=== PATIENT | female | born 1955 | race Caucasian/White ===

== ENCOUNTER 2018-07-29 15:09 | Emergency (ER) | payer OTHER ==
[2018-07-29] MEDS ORDERED: ALBUTEROL 2.5 MG/3 ML NEB SOL ONE (15:42)
[2018-07-29] MEDS ORDERED: predniSONE 20 MG TAB ONE (15:42)
[2018-07-29 15:53] LABS: Absolute Lymphocytes (CBC) 2.3 K/uL (0.7-4.9); Absolute Monocytes 0.7 K/uL (0.1-1.3); Absolute Neutrophil 7.2 K/uL (1.8-8.0); Basophils % 1.1 % (0-1.3); Eosinophils % 0.9 % (0-4.4); Hematocrit 43.8 % (36.0-45.0); MPV 10.3 fL (7.6-11.3); Monocytes % 6.6 % (3.3-12.3); RBC Red Blood Cell Count 5.27 M/uL (3.86-4.86)
--- NOTE | 2018-07-29 16:20 | RAD REPORT ---
EXAM DESCRIPTION: RAD - Chest Pa And Lat (2 Views) - 07/29/2018 4:04 pm CLINICAL HISTORY: Cough;SOB Chest pain. COMPARISON: Chest Pa And Lat (2 Views) dated 10/20/2015; CHEST SINGLE VIEW dated 06/29/2014; CHEST SI NGLE VIEW dated 06/28/2014; CHEST SINGLE VIEW dated 06/27/2014 FINDINGS: Reticular opacities are present bilaterally most likely representing atypical pneumonia. N o lobar consolidation The heart is normal in size. No displaced fractures. IMPRESSION: Reticular opacities in both lungs most compatible with atypical pneumonia.
[2018-07-29 16:22] LABS: ALT/SGPT 12 U/L (12-78); AST/SGOT 13 U/L (15-37); Alkaline Phosphatase 130 U/L (45-117); BUN Blood Urea Nitrogen 13 mg/dL (7-18); Bicarbonate 32 mmol/L (21-32); Bilirubin Direct < 0.1 mg/dL (0-0.2); Bilirubin Total 0.2 mg/dL (0.2-1.0); Potassium 4.3 mmol/L (3.5-5.1); Sodium Level 134 mmol/L (136-145)
[2018-07-29 16:23] LABS: Albumin 3.2 g/dL (3.4-5.0); Magnesium 1.8 mg/dL (1.8-2.4); NT PRO-BNP 55 pg/mL (<125); Protein, Total 7.6 g/dL (6.4-8.2); Troponin (Emerg Dept Use Only) < 0.02 ng/mL (0.0-0.045)
[2018-07-29 16:24] LABS: Glucose Level 554 mg/dL (74-106)
[2018-07-29 16:33] LABS: Protime INR 1.07
[2018-07-29] MEDS ORDERED: INSULIN -REGULAR HUMAN 50 UNIT/0.5 ML ML ONE (16:54)
[2018-07-29] MEDS ORDERED: CEFTRIAXONE/SWI 1gm 1 GM/10 ML SYR ONE (16:55)
[2018-07-29] MEDS ORDERED: NA CHLORIDE 0.9% 1,000 ML ONE (16:55)
[2018-07-29] MEDS ORDERED: AZITHROMYCIN 500 MG/250 ML BAG ONE (16:55)
--- NOTE | 2018-07-29 17:07 | EKG ---
Test Date: 2018-07-29 Test Time: 15:39:44 Cafeteria Cook: KEN MEASUREMENT RESULTS: Intervals: Rate: 77 MD: 128 QRSD: 78 QT: 402 QTc: 454 [place]: P: 61 MD: 128 QRS: 70 T: 84 INTERPRETIVE STATEMENTS: Sinus rhythm with fusion complexes Otherwise normal ECG No previous ECG available for comparison Electronically Signed On 07-29-18 17:06:42 [employer]SEM[employer] MACHINE ADJUSTER by Joaquim Brooks
--- NOTE | 2018-07-29 18:40 | ER ---
Nurse's Notes [facility] Name: Caren Singh Age: 62 yrs Sex: Female : 1955 Arrival Date: 07/29/2018 Time: 15:12 Bed 28 Private MD: Tiffany Meyers Diagnosis: Pneumonia, unspecified organism Presentation: 07/29 15:16 Presenting complaint: Patient states: i started feeling short of breath for at least a tw2 week, just gotten where i am not coughing the green junk up. Transition of care: patient was not received from another setting of care. Onset of symptoms was July 29, 2018. Risk Assessment: Do you want to hurt yourself or someone else? Patient reports no desire to harm self or others. Initial Sepsis Screen: Does the patient meet any 2 criteria? No. Patient's initial sepsis screen is negative. Does the patient have a suspected source of infection? No. Patient's initial sepsis screen is negative. Care prior to arrival: None. 15:16 Method Of Arrival: Ambulatory tw2 15:16 Acuity: ONI 3 tw2 Triage Assessment: 15:17 General: Appears in no apparent distress. Behavior is calm, cooperative, appropriate tw2 for age. Pain: Complains of pain in chest, with deep breathing. Respiratory: Reports shortness of breath cough that is non-productive, Onset: The symptoms/episode began/occurred a week now, the patient has mild shortness of breath. Historical: - Allergies: 15:19 No Known Drug Allergies; tw2 - Home Meds: 15:19 diabetes medication "gentomedia or something" [Active]; tw2 - PMHx: 15:19 Diabetes - NIDDM; Hypertension; tw2 - PSHx: 15:19 Appendectomy; Cholecystectomy; Hysterectomy; ear surgery; tw2 - Immunization history:: Adult Immunizations. - Social history:: Smoking status: Patient uses tobacco products, "i havent smoked in a month". - Ebola Screening: : Patient denies travel to an Ebola-affected area in the 21 days before illness onset. Screenin:14 Abuse screen: Denies threats or abuse. Denies injuries from another. Nutritional mg2 screening: No deficits noted. Tuberculosis screening: No symptoms or risk factors identified. Fall Risk IV access (20 points). Assessment: 16:11 General: Appears in no apparent distress. comfortable, Behavior is calm, cooperative. mg2 Pain: Complains of pain in chest Pain does not radiate. Pain currently is 2 out of 10 on a pain scale. Quality of pain is described as aching, Pain began gradually, Is intermittent. Neuro: Level of Consciousness is awake, alert, obeys commands, Oriented to person, place, time, situation. Cardiovascular: Capillary refill < 3 seconds Patient's skin is warm and dry. Respiratory: Airway is patent Respiratory effort is even, unlabored, Respiratory pattern is regular, symmetrical. Respiratory: Reports shortness of breath cough that is non-productive, Breath sounds are clear bilaterally. in mediastinum, right upper lobe, left upper lobe, right middle lobe and left lower lobe. GI:. : No signs and/or symptoms were reported regarding the genitourinary system. EENT: No signs and/or symptoms were reported regarding the EENT system. Derm: Skin is intact, is healthy with good turgor, Skin is pink, warm \\T\\ dry. normal. Musculoskeletal: Circulation, motion, and sensation intact. Capillary refill < 3 seconds. 18:55 Cardiovascular: Rhythm is regular. mg2 18:55 Reassessment: Patient appears in no apparent distress at this time. patient improved. mg2 Vital Signs: 15:17 BP 158 / 77; Pulse 84; Resp 19; Temp 97.1(O); Pulse Ox 97% on R/A; Weight 58.97 kg (R); tw2 Height 5 ft. 5 in. (165.10 cm); Pain 7/10; 17:08 BP 132 / 87; Pulse 94; Resp 18; Pulse Ox 93% on R/A; Pain 0/10; mg2 18:44 BP 145 / 78; Pulse 85; Resp 18; Temp 98.2(O); Pulse Ox 100% on R/A; Pain 2/10; mg2 15:17 Body Mass Index 21.63 (58.97 kg, 165.10 cm) tw2 ED Course: 15:12 Patient arrived in ED. dl4 15:12 Ian Dias DO is Private Physician. dl4 15:12 Isacc Meyers DO is Private Physician. dl4 15:12 Tiffany Meyers MD is Private Physician. dl4 15:17 Triage completed. tw2 15:18 Arm band placed on. tw2 15:20 Trenton Ward, BERNA is PHCP. pm1 15:20 Radha Kingston MD is Attending Physician. pm1 15:30 Jax Alas, CHLOÉ is Primary Nurse. mg2 15:53 No provider procedures requiring assistance completed. Inserted saline lock: 20 gauge mg2 in left forearm, using aseptic technique. Blood collected. 15:54 EKG done, by foundry technician. reviewed by Trenton Ward NP. tc 16:05 Chest Pa And Lat (2 Views) XRAY In Process Unspecified. EDMS 16:14 Patient has correct armband on for positive identification. Door closed. Warm blanket mg2 given. 18:55 IV discontinued, intact, bleeding controlled, No redness/swelling at site. Pressure mg2 dressing applied. Administered Medications: 15:52 Drug: Albuterol 2.5 mg Route: Inhalation; mg2 18:54 Follow up: Response: No adverse reaction; Marked relief of symptoms mg2 15:52 Drug: predniSONE 60 mg Route: PO; mg2 18:54 Follow up: Response: No adverse reaction; Marked relief of symptoms mg2 17:00 Drug: Insulin Regular Human 10 units {Co-Signature: tl3 (Antonia Cummings RN).} Route: IVP; mg2 Site: left forearm; 18:53 Follow up: Response: No adverse reaction; Blood sugar is lowered mg2 17:07 Drug: Rocephin 1 grams Route: IV; Rate: calculated rate; Site: left forearm; mg2 18:54 Follow up: Response: No adverse reaction; IV Status: Completed infusion mg2 17:07 Drug: AZITHromycin 500 mg Route: IVPB; Infused Over: 1 hrs; Site: left forearm; mg2 18:54 Follow up: Response: No adverse reaction; IV Status: Completed infusion mg2 17:07 Drug: NS 0.9% 1000 ml Route: IV; Rate: 1000 ml; Site: left forearm; mg2 18:53 Follow up: Response: No adverse reaction; IV Status: Completed infusion mg2 Point of Care Testing: Blood Glucose: 18:44 Blood Glucose: 359 mg/dL; mg2 Ranges: Outcome: 18:40 Discharge ordered by . pm1 18:55 Discharged to home ambulatory. mg2 18:55 Condition: stable 18:55 Discharge instructions given to patient, Instructed on discharge instructions, follow up and referral plans. medication usage, Demonstrated understanding of instructions, follow-up care, medications, Prescriptions given X 5 19:03 Patient left the ED. mg2 Signatures: Dispatcher [employer] EDMS Ivanna Kumari, manager college EKG Trenton Blake, BERNA [employer] pm1 Luz Elena Retana, RN RN tw2 Jax Alas RN RN mg2 Naeem Fernández dl4 Antonia Cummings RN tl3
--- NOTE | 2018-07-29 18:40 | EDPHYS ---
Physician Documentation [facility] Name: Caren Singh Age: 62 yrs Sex: Female : 1955 Arrival Date: 07/29/2018 Time: 15:12 Bed 28 Private MD: Tiffany Meyers ED Physician Radha Kingston HPI: 07/29 16:00 This 62 yrs old Female presents to ER via Ambulatory with complaints of pm1 Breathing Difficulty. 16:00 The patient has shortness of breath at rest. Onset: The symptoms/episode began/occurred pm1 1 week(s) ago. Duration: The symptoms are continuous, and are steadily getting worse. The patient's shortness of breath is aggravated by light activity, is alleviated by nothing. Associated signs and symptoms: Pertinent positives: chest pain, productive cough, Chills, Pertinent negatives: fever, nausea, vomiting. The patient has experienced a previous episode, many years ago, pneumonia. The patient has not recently seen a physician. Historical: - Allergies: 15:19 No Known Drug Allergies; tw2 - Home Meds: 15:19 diabetes medication "gentomedia or something" [Active]; tw2 - PMHx: 15:19 Diabetes - NIDDM; Hypertension; tw2 - PSHx: 15:19 Appendectomy; Cholecystectomy; Hysterectomy; ear surgery; tw2 - Immunization history:: Adult Immunizations. - Social history:: Smoking status: Patient uses tobacco products, "i havent smoked in a month". - Ebola Screening: : Patient denies travel to an Ebola-affected area in the 21 days before illness onset. ROS: 16:00 Constitutional: Negative for fever, chills, and weight loss, Eyes: Negative for injury, pm1 pain, redness, and discharge, ENT: Negative for injury, pain, and discharge, Neck: Negative for injury, pain, and swelling, Cardiovascular: Negative for chest pain, palpitations, and edema. 16:00 Abdomen/GI: Negative for abdominal pain, nausea, vomiting, diarrhea, and constipation, Back: Negative for injury and pain, : Negative for injury, bleeding, discharge, and swelling, MS/Extremity: Negative for injury and deformity, Skin: Negative for injury, rash, and discoloration, Neuro: Negative for headache, weakness, numbness, tingling, and seizure. 16:00 Respiratory: Positive for cough, with yellow sputum, dyspnea on exertion, shortness of breath. Exam: 16:00 Constitutional: This is a well developed, well nourished patient who is awake, alert, pm1 and in no acute distress. Head/Face: Normocephalic, atraumatic. Eyes: Pupils equal round and reactive to light, extra-ocular motions intact. Lids and lashes normal. Conjunctiva and sclera are non-icteric and not injected. Cornea within normal limits. Periorbital areas with no swelling, redness, or edema. ENT: Nares patent. No nasal discharge, no septal abnormalities noted. Tympanic membranes are normal and external auditory canals are clear. Oropharynx with no redness, swelling, or masses, exudates, or evidence of obstruction, uvula midline. Mucous membranes moist. Neck: Trachea midline, no thyromegaly or masses palpated, and no cervical lymphadenopathy. Supple, full range of motion without nuchal rigidity, or vertebral point tenderness. No Meningismus. Chest/axilla: Normal chest wall appearance and motion. Nontender with no deformity. No lesions are appreciated. Cardiovascular: Regular rate and rhythm with a normal S1 and S2. No gallops, murmurs, or rubs. Normal PMI, no JVD. No pulse deficits. 16:00 Abdomen/GI: Soft, non-tender, with normal bowel sounds. No distension or tympany. No guarding or rebound. No evidence of tenderness throughout. Back: No spinal tenderness. No costovertebral tenderness. Full range of motion. Skin: Warm, dry with normal turgor. Normal color with no rashes, no lesions, and no evidence of cellulitis. MS/ Extremity: Pulses equal, no cyanosis. Neurovascular intact. Full, normal range of motion. 16:00 Respiratory: the patient does not display signs of respiratory distress, Respirations: normal, Breath sounds: rhonchi, that are mild, are heard diffusely. 16:00 Neuro: Orientation: is normal, Motor: is normal, moves all fours. Vital Signs: 15:17 BP 158 / 77; Pulse 84; Resp 19; Temp 97.1(O); Pulse Ox 97% on R/A; Weight 58.97 kg (R); tw2 Height 5 ft. 5 in. (165.10 cm); Pain 7/10; 17:08 BP 132 / 87; Pulse 94; Resp 18; Pulse Ox 93% on R/A; Pain 0/10; mg2 18:44 BP 145 / 78; Pulse 85; Resp 18; Temp 98.2(O); Pulse Ox 100% on R/A; Pain 2/10; mg2 15:17 Body Mass Index 21.63 (58.97 kg, 165.10 cm) tw2 MDM: 15:21 Patient medically screened. pm1 16:00 Data reviewed: vital signs. pm1 16:45 Data interpreted: Pulse oximetry: on room air is 97 %. Interpretation: normal. pm1 16:49 Counseling: I had a detailed discussion with the patient and/or guardian regarding: the pm1 historical points, exam findings, and any diagnostic results supporting the discharge/admit diagnosis, lab results, radiology results. 18:36 ED course: PSI PORT score = 64 points, Risk Class II. Discussed case with Dr Kingston. pm1 Will discharge patient home with antibiotics, steroids, and breathing treatment. Educated patient on return precautions for worsening condition or any concerns. 18:36 Counseling: I had a detailed discussion with the patient and/or guardian regarding: the pm1 need for further work-up and treatment in the hospital, to return to the emergency department if symptoms worsen or persist or if there are any questions or concerns that arise at home. 18:36 Special discussion: I discussed with the patient/guardian in detail that at this point pm1 there is no indication for admission to the hospital. It is understood, however, that if the symptoms persist or worsen the patient needs to return immediately for re-evaluation. 07/29 15: Order name: Basic Metabolic Panel; Complete Time: 16:28 pm07/29 15:29 Order name: CBC with Diff; Complete Time: 16:17 pm07/29 15:29 Order name: LFT's; Complete Time: 16:28 pm07/29 15:29 Order name: Magnesium; Complete Time: 16:28 pm07/29 15:29 Order name: NT PRO-BNP; Complete Time: 16:28 pm07/29 15:29 Order name: PT-INR; Complete Time: 16:38 pm07/29 15:29 Order name: Troponin (emerg Dept Use Only); Complete Time: 16:28 pm07/29 15:29 Order name: Chest Pa And Lat (2 Views) XRAY; Complete Time: 16:28 pm07/29 15:29 Order name: Flu; Complete Time: 16:17 pm07/29 16:29 Order name: Blood Culture Adult (2) pm1 07/29 15:29 Order name: EKG; Complete Time: 15:31 pm07/29 15:29 Order name: Cardiac monitoring; Complete Time: 15:52 pm07/29 15:29 Order name: EKG - Nurse/Tech; Complete Time: 15:52 pm07/29 15:29 Order name: IV Saline Lock; Complete Time: 15:52 pm07/29 15:29 Order name: Labs collected and sent; Complete Time: 15:52 pm07/29 15:29 Order name: O2 Per Protocol; Complete Time: 15:53 pm07/29 15:29 Order name: O2 Sat Monitoring; Complete Time: 15:53 pm1 Administered Medications: 15:52 Drug: Albuterol 2.5 mg Route: Inhalation; mg2 18:54 Follow up: Response: No adverse reaction; Marked relief of symptoms mg2 15:52 Drug: predniSONE 60 mg Route: PO; mg2 18:54 Follow up: Response: No adverse reaction; Marked relief of symptoms mg2 17:00 Drug: Insulin Regular Human 10 units {Co-Signature: tl3 (Antonia Cummings RN).} Route: IVP; mg2 Site: left forearm; 18:53 Follow up: Response: No adverse reaction; Blood sugar is lowered mg2 17:07 Drug: Rocephin 1 grams Route: IV; Rate: calculated rate; Site: left forearm; mg2 18:54 Follow up: Response: No adverse reaction; IV Status: Completed infusion mg2 17:07 Drug: AZITHromycin 500 mg Route: IVPB; Infused Over: 1 hrs; Site: left forearm; mg2 18:54 Follow up: Response: No adverse reaction; IV Status: Completed infusion mg2 17:07 Drug: NS 0.9% 1000 ml Route: IV; Rate: 1000 ml; Site: left forearm; mg2 18:53 Follow up: Response: No adverse reaction; IV Status: Completed infusion mg2 Point of Care Testing: Blood Glucose: 18:44 Blood Glucose: 359 mg/dL; mg2 Ranges: Critical Glucose Levels:Adult <50 mg/dl or >400 mg/dl <40 mg/dl or >180 mg/dl Disposition: 07/30 18:41 Co-signature as Attending Physician, Radha Kingston MD. ma2 Disposition: 07/29/18 18:40 Discharged to Home. Impression: Pneumonia, unspecified organism. - Condition is Stable. - Discharge Instructions: Community-Acquired Pneumonia, Adult. - Prescriptions for Zithromax Z- Francis 250 mg Oral Tablet - take 1 tablet by ORAL route as directed for 5 days Day 1 - take two (2) tablets one time. Day 2, 3, 4 , 5 take one (1) tablet once daily.; 6 tablet. Albuterol Sulfate 90 mcg/actuation - inhale 1-2 puff by INHALATION route every 4-6 hours; 1 Inhaler. Guaifenesin AC 10- 100 mg/5 mL Oral Liquid - take 10 milliliter by ORAL route every 4 hours As needed; 240 milliliter. Albuterol Sulfate 2.5 mg /3 mL (0.083 %) Inhalation Solution for Nebulization - inhale 1 unit by NEBULIZATION route every 8 hours As needed; 1 box. Medrol (Francis) 4 mg Oral Tablets, Dose Pack - take 1 tablet by ORAL route as directed - follow package instructions; 1 packet. - Medication Reconciliation Form, Thank You Letter, Antibiotic Education, Prescription Opioid Use form. - Follow up: Emergency Department; When: As needed; Reason: Worsening of condition. Follow up: Private Physician; When: 2 - 3 days; Reason: Recheck today's complaints, Continuance of care, Re-evaluation by your physician. - Problem is new. - Symptoms have improved. Signatures: Dispatcher [employer] EDMS Trenton Ward, BERNA COAL MINER pm1 Luz Elena Retana, CHLOÉ RN tw2 Radha Kingston MD MD ma2 Jax Alas RN RN mg2 Antonia Cummings RN tl3 Corrections: (The following items were deleted from the chart) 07/29 19:03 18:40 07/29/2018 18:40 Discharged to Home. Impression: Pneumonia, unspecified organism. mg2 Condition is Stable. Forms are Medication Reconciliation Form, Thank You Letter, Antibiotic Education, Prescription Opioid Use. Follow up: Emergency Department; When: As needed; Reason: Worsening of condition. Follow up: Private Physician; When: 2 - 3 days; Reason: Recheck today's complaints, Continuance of care, Re-evaluation by your physician. Problem is new. Symptoms have improved. pm1
[2018-07-29 19:26] VITALS: BP 145/78; TEMP 98.2; O2SAT 100
== END 2018-07-29 19:03 | disposition home or self-care (01) ==
LOC: SUPCPDRO 15:09 → ER 15:09
DX: J18.9 Pneumonia, unspecified organism (principal); E11.9 Type 2 diabetes mellitus without complications; I10 Essential (primary) hypertension; Z79.84 Long term (current) use of oral hypoglycemic drugs; Z72.0 Tobacco use
CPT/HCPCS: 36415; 71046; 80048; 80076; 82962; 83735; 83880; 84484; 85025; 85610; 87040 ×2; 87804 ×2; 93005; 96365; 96366; 96368; 96375; 99284; J0456; J0696; J7030; J7512

== ENCOUNTER 2021-03-04 11:43 | Emergency (ER) | payer OTHER ==
--- OUTSIDE RECORDS SUMMARY | 2021-03-04 11:45 | XMS REPORT | Continuity of Care Document ---
:1955 Author Organization [facility] t Address [address] [place] [address] Dr. Walker [address] [place] [id number] Care Team Providers Name Role Phone Unavailable Unavailable Unavailable Problems This patient has no known problems. Allergies, Adverse Reactions, Alerts This patient has no known allergies or adverse reactions. Medications This patient has no known medications. Procedures This patient has no known procedures. Results This patient has no known results.
--- NOTE | 2021-03-04 14:36 | ER ---
Nurse's Notes [facility] Name: Caren Singh Age: 65 yrs Sex: Female : 1955 Arrival Date: 03/04/2021 Time: 11:49 Bed 9 Private MD: Isacc Meyers Diagnosis: Contusion of left forearm;Contusion of right forearm;Fall on same level, unspecified Presentation: 03/04 12:22 Chief complaint: Patient states: "I have a sore on my left arm and it hurts". Pt also aa5 c/o pain to right arm, pt states "I fell right onto my arms but it was a while ago so I don't know if it has anything to do with the pain". Coronavirus screen: At this time, the client does not indicate any symptoms associated with coronavirus-19. Ebola Screen: Patient negative for fever greater than or equal to 101.5 degrees Fahrenheit, and additional compatible Ebola Virus Disease symptoms. Initial Sepsis Screen: Does the patient meet any 2 criteria? HR > 90 bpm. Does the patient have a suspected source of infection? No. Patient's initial sepsis screen is negative. Risk Assessment: Do you want to hurt yourself or someone else? Patient reports no desire to harm self or others. Onset of symptoms was 2020. 12:22 Method Of Arrival: Ambulatory aa5 12:22 Acuity: ONI 4 aa5 Historical: - Allergies: 12:23 No Known Allergies; aa5 - PMHx: 12:23 Diabetes - NIDDM; Hypertension; aa5 12:24 COPD; aa5 - Immunization history:: Client reports having NOT received the Covid vaccine. - Social history:: Smoking status: Patient denies any tobacco usage or history of. Vital Signs: 12:23 BP 153 / 88; Pulse 97; Resp 18 S; Temp 98.2(TE); Pulse Ox 94% on R/A; Weight 68.04 kg aa5 (R); Height 5 ft. 5 in. (165.10 cm) (R); 12:23 Body Mass Index 24.96 (68.04 kg, 165.10 cm) aa5 ED Course: 11:49 Patient arrived in ED. mr 11:49 Isacc Meyers, is Private Physician. mr 12:22 Arm band placed on. aa5 12:23 Triage completed. aa5 14:06 Breanna Fu, RN is Primary Nurse. iw 14:11 Greg Hart MD is Attending Physician. [facility] 14:33 Isacc Meyers DO is Referral Physician. cale Administered Medications: 15:37 Drug: Motrin (ibuprofen) 400 mg Route: PO; iw 15:37 Drug: KeFLEX (cephalexin) 500 mg Route: PO; iw Outcome: 14:35 Discharge ordered by . [facility] 15:51 Patient left the ED. iw Signatures: Greg Hart MD MD cha Chelsey Thurman mr Breanna Fu RN RN iw Peg Spear RN RN aa5 Corrections: (The following items were deleted from the chart) 12: 12:22 Chief complaint: Patient states: "I have a sore on my left arm and it hurts". aa5 aa5 12:25 12:22 Initial Sepsis Screen: Does the patient meet any 2 criteria? No. Patient's aa5 initial sepsis screen is negative. Does the patient have a suspected source of infection? No. Patient's initial sepsis screen is negative. aa5 12:25 12:23 Pulse 97bpm; Resp 18bpm; Spontaneous; Pulse Ox 94% RA; Temp 98.2F Temporal; 68.04 aa5 kg Reported; Height 5 ft. 5 in. Reported; BMI: 24.9; aa5
--- NOTE | 2021-03-04 14:36 | EDPHYS ---
Physician Documentation [facility] Name: Caren Singh Age: 65 yrs Sex: Female : 1955 Arrival Date: 03/04/2021 Time: 11:49 Bed 9 Private MD: Luigi [facility] ED Physician Greg Hart HPI: 03/04 14:30 This 65 yrs old Female presents to ER via Ambulatory with complaints of Skin cale Sore(s), Arm Pain. 14:30 The patient or guardian complains of decreased range of motion, pain, swelling. The cale complaints affect the palmar aspect of right forearm, dorsal aspect of left forearm and palmar aspect of left forearm. Context: The problem was sustained at home. Onset: The symptoms/episode began/occurred today. Treatment prior to arrival includes: no previous treatment. Modifying factors: The symptoms are alleviated by nothing. the symptoms are aggravated by movement. Associated signs and symptoms: The patient has no apparent associated signs or symptoms. The patient has not experienced similar symptoms in the past. Historical: - Allergies: 12:23 No Known Allergies; aa5 - PMHx: 12:23 Diabetes - NIDDM; Hypertension; aa5 12:24 COPD; aa5 - Immunization history:: Client reports having NOT received the Covid vaccine. - Social history:: Smoking status: Patient denies any tobacco usage or history of. ROS: 14:30 Constitutional: Negative for fever, chills, and weight loss, Eyes: Negative for injury, cale pain, redness, and discharge, ENT: Negative for injury, pain, and discharge, Neck: Negative for injury, pain, and swelling, Cardiovascular: Negative for chest pain, palpitations, and edema, Respiratory: Negative for shortness of breath, cough, wheezing, and pleuritic chest pain, Abdomen/GI: Negative for abdominal pain, nausea, vomiting, diarrhea, and constipation, Back: Negative for injury and pain, : Negative for injury, bleeding, discharge, and swelling, Skin: Negative for injury, rash, and discoloration, Neuro: Negative for headache, weakness, numbness, tingling, and seizure, Psych: Negative for depression, anxiety, suicide ideation, homicidal ideation, and hallucinations, Allergy/Immunology: Negative for hives, rash, and allergies, Endocrine: Negative for neck swelling, polydipsia, polyuria, polyphagia, and marked weight changes, Hematologic/Lymphatic: Negative for swollen nodes, abnormal bleeding, and unusual bruising. 14:30 MS/extremity: Positive for pain, swelling, of the right arm and left arm. Exam: 14:30 Constitutional: This is a well developed, well nourished patient who is awake, alert, cale and in no acute distress. Head/Face: Normocephalic, atraumatic. Eyes: Pupils equal round and reactive to light, extra-ocular motions intact. Lids and lashes normal. Conjunctiva and sclera are non-icteric and not injected. Cornea within normal limits. Periorbital areas with no swelling, redness, or edema. ENT: Nares patent. No nasal discharge, no septal abnormalities noted. Tympanic membranes are normal and external auditory canals are clear. Oropharynx with no redness, swelling, or masses, exudates, or evidence of obstruction, uvula midline. Mucous membranes moist. Neck: Trachea midline, no thyromegaly or masses palpated, and no cervical lymphadenopathy. Supple, full range of motion without nuchal rigidity, or vertebral point tenderness. No Meningismus. Chest/axilla: Normal chest wall appearance and motion. Nontender with no deformity. No lesions are appreciated. Cardiovascular: Regular rate and rhythm with a normal S1 and S2. No gallops, murmurs, or rubs. Normal PMI, no JVD. No pulse deficits. Respiratory: Lungs have equal breath sounds bilaterally, clear to auscultation and percussion. No rales, rhonchi or wheezes noted. No increased work of breathing, no retractions or nasal flaring. Abdomen/GI: Soft, non-tender, with normal bowel sounds. No distension or tympany. No guarding or rebound. No evidence of tenderness throughout. Back: No spinal tenderness. No costovertebral tenderness. Full range of motion. Neuro: Awake and alert, GCS 15, oriented to person, place, time, and situation. Cranial nerves II-XII grossly intact. Motor strength 5/5 in all extremities. Sensory grossly intact. Cerebellar exam normal. Normal gait. Psych: Awake, alert, with orientation to person, place and time. Behavior, mood, and affect are within normal limits. 14:30 Musculoskeletal/extremity: ROM: full active range of motion, full passive range of motion, Circulation is intact in all extremities. Sensation intact. Compartment Syndrome exam of affected extremity: is normal. DVT Exam: negative Homans' sign noted on exam, no appreciated bluish discoloration, no erythema, no increased warmth, pain, swelling, tenderness. Vital Signs: 12:23 BP 153 / 88; Pulse 97; Resp 18 S; Temp 98.2(TE); Pulse Ox 94% on R/A; Weight 68.04 kg aa5 (R); Height 5 ft. 5 in. (165.10 cm) (R); 12:23 Body Mass Index 24.96 (68.04 kg, 165.10 cm) aa5 MDM: 14:11 Patient medically screened. cale 14:30 Differential diagnosis: contusion, abrasion. Data reviewed: vital signs, nurses notes, cale lab test result(s), EKG, radiologic studies, ultrasound. Data interpreted: alarm security or surveillance monitor: not applicable for this patient encounter. rate is 97 beats/min, rhythm is regular, Pulse oximetry: on room air is 94 %. Administered Medications: 15:37 Drug: Motrin (ibuprofen) 400 mg Route: PO; iw 15:37 Drug: KeFLEX (cephalexin) 500 mg Route: PO; iw Disposition Summary: 03/04/21 14:35 Discharge Ordered Location: Home cale Problem: new cale Symptoms: have improved cale Condition: Stable cale Diagnosis - Contusion of left forearm cale - Contusion of right forearm cale - Fall on same level, unspecified cale Followup: cale - With: Isacc Meyers, DO - When: 2 - 3 days - Reason: Recheck today's complaints, Continuance of care, Re-evaluation by your physician Discharge Instructions: - Discharge Summary Sheet cale - Contusion cale - Contusion, [id number] cale - Aspirin and Your Heart cale - Fall Prevention in the Home, Adult cale - Fall Prevention in the Home, Adult, [id number] cale Forms: - Medication Reconciliation Form cale - Thank You Letter cale - Antibiotic Education cale - Prescription Opioid Use cale Prescriptions: - Cephalexin 500 mg Oral Capsule - take 1 capsule by ORAL route every 6 hours for 7 days; 28 capsule; Refills: 0, cale Product Selection Permitted - Motrin IB 200 mg Oral Tablet - take 1 tablet by ORAL route every 6 hours As needed as needed with food; 20 cale tablet; Refills: 0, Product Selection Permitted Signatures: Greg Hart MD MD cha Williams, Irene, RN RN iw Peg Spear, RN RN aa5
[2021-03-04] MEDS ORDERED: IBUPROFEN 400 MG TAB ONE (15:53)
[2021-03-04] MEDS ORDERED: CEPHALEXIN 250 MG CAP ONE (15:53)
[2021-03-04 15:54] VITALS: BP 153/88; TEMP 98.2; O2SAT 94
== END 2021-03-04 15:51 | disposition home or self-care (01) ==
LOC: ER 11:43
DX: S50.12XA Contusion of left forearm, initial encounter (principal); S50.11XA Contusion of right forearm, initial encounter; W18.30XA Fall on same level, unspecified, initial encounter; I10 Essential (primary) hypertension
CPT/HCPCS: 99282

== ENCOUNTER 2022-12-27 06:11 | Day surgery (SDC) | payer OTHER ==
[2022-12-27] MEDS: TROPICAMIDE 1% OPTH 3 ML BOT ONE ×3 (06:40→07:10)
[2022-12-27] MEDS: MOXIFLOXACIN HCL 10 DROPS/ML **OR USE OPTH ONE ×3 (06:40→07:10)
[2022-12-27] MEDS: PHENYLEPHRINE 2.5% OPTH 2 ML ONE ×3 (06:40→07:10)
[2022-12-27] MEDS: CYCLOPENTOLATE 2% OPTH 2 ML ONE ×3 (06:40→07:10)
[2022-12-27] MEDS ORDERED: NA CHLORIDE 0.9% 1,000 ML ONE (06:42)
[2022-12-27] MEDS ORDERED: INSULIN -REGULAR HUMAN 50 UNIT/0.5 ML ML ONE (07:06)
[2022-12-27] MEDS ORDERED: POVIDONE-IODINE 5% EYE DROPS ONE (07:10)
[2022-12-27] MEDS ORDERED: BALANCED SALT IRRIG PLAIN 500 ML IRR ONE (07:10)
[2022-12-27] MEDS ORDERED: TOBRADEX 0.3-0.1% OPTH OINTMENT ONE (07:10)
[2022-12-27] MEDS ORDERED: BSS OPTHALMIC SOL 15 ML OPTH ONE (07:10)
[2022-12-27] MEDS ORDERED: EPINEPHRINE/PF 1 MG/ML AMP ONE (07:10)
[2022-12-27] MEDS ORDERED: DUOVISC 1 KIT OPTH ONE (07:11)
[2022-12-27] MEDS ORDERED: propofoL 200 MG/20 ML VIAL IV ONE (07:21)
[2022-12-27] MEDS ORDERED: FENTANYL CITR 100 MCG/2 ML ONE (07:21)
[2022-12-27] MEDS ORDERED: ONDANSETRON 4 MG/2 ML VIAL ONE (07:22)
[2022-12-27] MEDS ORDERED: LIDOCAINE 2% MPF 5 ML VIAL ONE (07:22)
[2022-12-27] MEDS ORDERED: MIDAZOLAM HCL 2 MG/2 ML INJ ONE (07:22)
[2022-12-27] MEDS ORDERED: dexAMETHasone 10 MG/ML VIAL ONE (07:22)
[2022-12-27 09:02] VITALS: O2SAT 99
--- NOTE | 2022-12-27 09:16 | OP ---
Date of Procedure: 12/27/2022 Surgeon: Simeon Crook MD [facility] Practitioner: None. Preoperative Diagnosis: Visually significant cataract, left eye. Postoperative Diagnosis: Visually significant cataract, left eye. Procedure Performed: Cataract extraction of left eye with placement of intraocular lens, left eye. Description Of Procedure: After being properly identified in the preoperative holding area, the patient was taken back to the operating room where a time-out was performed. The patient was then placed under general anesthesia and prepped and draped in normal sterile fashion. Examination of the eye underneath the operating microscope revealed a well-dilated pupil. The globe was grasped with a pair of 0.12 forceps and paracentesis wounds were made inferiorly and superiorly with a 1.0 mm blade and the anterior chamber filled with Viscoat. The globe was then grasped again and the main phaco incision wound made using a 2.4 mm keratome in a triplanar fashion. A continuous curvilinear capsulorrhexis was created using a cystotome and completed with an Utrata forceps. Hydrodissection and hydrodelineation were carried out using a Ernandez cannula resulting in free rotation of the lens nucleus. The lens was thereafter removed in the standard divide and conquer technique. Once all 4 quadrants had been removed, the remaining cortical material was removed with bimanual irrigation aspiration and the capsular bag polished. The capsular bag was then filled with viscoelastic and a Fransisco and Fransisco, model DCBOO, serial #[id number], diopter 16.5 inman was implanted into the capsular bag and dialed into position. The viscoelastic was then removed and the wound was hydrated in order to ensure water tightness. The main phaco incision wound displayed leakage and therefore a single 10-0 nylon interrupted suture was placed with the knot buried various times throughout the procedure. The patient's iris did display some floppiness and did protrude through the main phaco incision wound on a few occasions requiring repositing. There were no complications, however. No specimens were sent. No drains were placed. Implants are as above. The patient was pressure patched over TobraDex ointment and taken to the postoperative holding area in stable condition having tolerated the procedure well being under general anesthesia the entire time. The patient is to follow up with myself, Dr. Simeon Crook tomorrow. JPG/MODL Voice ID: [id number] Report ID: [id number]
[2022-12-27 10:09] VITALS: BP 130/2; TEMP 97
== END 2022-12-27 09:50 | disposition home or self-care (01) ==
LOC: OR 06:11
PROVIDERS: ATTEND Ophthalmology
PROC: 08RK3JZ Replacement of Left Lens with Synthetic Substitute, Percutaneous Approach (ICD-10-PCS; principal; 2022-12-27 07:30)
DX: H25.812 Combined forms of age-related cataract, left eye (principal)
CPT/HCPCS: 66984; 82947 ×3; J1815; J2704; J0171; J2001; J2250; J3010; J1100; J2405; J7030

== ENCOUNTER 2023-01-15 07:17 | Day surgery (SDC) | payer OTHER ==
[2023-01-10 12:12] LABS: Potassium 4.3 mEq/L (3.5-5.1)
--- NOTE | 2023-01-10 15:43 | EKG ---
Test Date: 2023-01-10 Test Time: 11:45:44 [employer] [facility] Director: ET MEASUREMENT RESULTS: Intervals: Rate: 68 IN: 130 QRSD: 88 QT: 432 QTc: 459 [place]: P: 72 IN: 130 QRS: 78 T: 84 INTERPRETIVE STATEMENTS: Normal sinus rhythm Normal ECG Compared to ECG 07/29/2018 15:39:44 Fusion complex(es) no longer present Electronically Signed On 01-10-23 15:42:39 CDT by Fabian Rice
[2023-01-15] MEDS: NA CHLORIDE 0.9% 1,000 ML ONE ×2 (07:30→07:56)
[2023-01-15] MEDS ORDERED: propofoL 200 MG/20 ML VIAL IV ONE (07:34)
[2023-01-15] MEDS ORDERED: FENTANYL CITR 100 MCG/2 ML ONE (07:34)
[2023-01-15] MEDS ORDERED: MIDAZOLAM HCL 2 MG/2 ML INJ ONE (07:36)
[2023-01-15] MEDS ORDERED: LIDOCAINE 2% MPF 5 ML VIAL ONE (07:37)
[2023-01-15] MEDS ORDERED: ONDANSETRON 4 MG/2 ML VIAL ONE (07:37)
[2023-01-15] MEDS ORDERED: MOXIFLOXACIN HCL 10 DROPS/ML **OR USE OPTH ONE (07:38)
[2023-01-15] MEDS ORDERED: KETOROLAC OPTHALMIC 5 ML BOT ONE (07:38)
[2023-01-15] MEDS ORDERED: TROPICAMIDE 1% OPTH 3 ML BOT ONE (07:38)
[2023-01-15] MEDS ORDERED: CYCLOPENTOLATE 2% OPTH 2 ML ONE (07:38)
[2023-01-15] MEDS ORDERED: PHENYLEPHRINE 10% OPTH 5ML ONE (07:38)
[2023-01-15] MEDS ORDERED: EPINEPHRINE/PF 1 MG/ML AMP ONE (07:42)
[2023-01-15] MEDS ORDERED: POVIDONE-IODINE 5% EYE DROPS ONE (07:42)
[2023-01-15] MEDS ORDERED: BSS OPTHALMIC SOL 15 ML OPTH ONE (07:42)
[2023-01-15] MEDS ORDERED: BALANCED SALT IRRIG PLAIN 500 ML IRR ONE (07:42)
[2023-01-15] MEDS ORDERED: TOBRADEX 0.3-0.1% OPTH OINTMENT ONE (07:42)
[2023-01-15] MEDS ORDERED: DUOVISC 1 KIT OPTH ONE (07:43)
[2023-01-15] MEDS ORDERED: INSULIN -REGULAR HUMAN 50 UNIT/0.5 ML ML ONE ×2 (08:15→09:25)
[2023-01-15] MEDS ORDERED: EPHEDRINE SULF 50 MG/ML VIAL ONE (08:29)
[2023-01-15] MEDS ORDERED: Phenylephrine HCl 10 MG/ML 1 ML VIAL ONE (08:36)
[2023-01-15] MEDS ORDERED: GLYCOPYRROLATE 0.2 MG/ML SYR ONE (08:38)
[2023-01-15 11:12] VITALS: BP 132/72; TEMP 96.5; O2SAT 99
--- NOTE | 2023-01-15 11:59 | OP ---
Date of Procedure: 01/15/2023 Surgeon: Simeon Crook MD Dinkey Operator Slag: None. Preoperative Diagnosis: Visually significant cataract, right eye. Postoperative Diagnosis: Visually significant cataract, right eye. Procedures Performed: Cataract extraction, right eye, with placement of intraocular lens, right eye. Description Of Procedure: After being properly identified in preoperative holding area, patient was taken back to the operating room where a time-out was performed. Patient was then placed under gener al anesthesia and prepped and draped in normal sterile fashion. Examination of the eye underneath e operating microscope revealed a well dilated pupil. The globe was grasped with a pair of 0.12 forc eps and paracentesis wounds were made in the 12 o'clock and 6 o'clock position. The anterior chamber was filled with Viscoat and again grasping the globe with a pair of 0.12 forceps, the main phaco inc ision was made with a 2.4 mm keratome in a triplane fashion. A continuous curvilinear capsulorrhexis was created using a cystotome and completed with Utrata forceps. Hydrodissection and hydrodelineati on were carried out using a Ernandez cannula resulting in free rotation of the lens nucleus. Thereafter , the lens was removed in a standard [id number] technique. Once all 4 quadrants had been rem doreen, the phaco handpiece was exchanged for bimanual irrigation and aspiration of handpieces and all cortical material was removed and the capsular bag polished. The capsular bag was then filled with P rovisc and a Franssico and Fransisco intra-ocular lens model DCB00 power 16.0 diopters, serial #[id number] was implanted into the capsular bag. The irrigation and aspiration handpieces were then used to re move all remaining viscoelastic material. The wounds were hydrated and found to be watertight and [facility] procedure concluded. The patient tolerated the procedure well, having been under general anesthesi a the entire time. The eye was patched over TobraDex ointment and the patient was taken to the posto perative holding area. As I mentioned, she is to follow up with myself, Dr. Simeon Crook, tomorrow . There were no complications. Estimated blood loss was nil. There were no specimens or drains and implants are as above. JPG/MODL Voice ID: [id number] Report ID: [id number]
== END 2023-01-15 10:30 | disposition home or self-care (01) ==
LOC: OR 07:17
PROVIDERS: ATTEND Ophthalmology
PROC: 08RJ3JZ Replacement of Right Lens with Synthetic Substitute, Percutaneous Approach (ICD-10-PCS; principal; 2023-01-15 07:30)
DX: H25.811 Combined forms of age-related cataract, right eye (principal)
CPT/HCPCS: 93005; 80048; 36415; 82947 ×3; 66984; J1815 ×2; J2704; J0171; J2371; J1885; J2001; J2250; J3010; J2405; J7030